=== PATIENT | male | born 1955 | race Caucasian/White ===

== ENCOUNTER 2016-09-25 14:44 | Emergency (ER) | payer MEDICARE ==
[2016-09-25 15:05] LABS: ADD ON TESTING BLD IN LAB ACKNOWLEDGE
[2016-09-25 15:06] LABS: ABSOLUTE BASOPHILS # (AUTO) 0.1 10^3/uL (0.0-0.2); ABSOLUTE LYMPHOCYTES (AUTO) 1.2 10^3/uL (0.5-4.7); ABSOLUTE MONOCYTES (AUTO) 0.5 10^3/uL (0.1-1.4); ABSOLUTE NEUT (AUTO) 14.2 10^3/uL (1.7-8.2); BASOPHILS % (AUTO) 0.7 % (0-2); EOSINOPHILS % (AUTO) 0.1 % (0-6); HEMATOCRIT 52.4 % (37.9-51.0); HEMOGLOBIN 17.6 g/dL (13.5-17.0); HGB HCT DIFFERENCE 0.4; LYMPHOCYTES % (AUTO) 7.7 % (13-45); MEAN CORPUSCULAR HEMOGLOBIN 31.4 pg (27.0-33.4); MEAN CORPUSCULAR HGB CONC 33.7 g/dL (32.0-36.0); MEAN CORPUSCULAR VOLUME 93 fl (80-97); MONOCYTES % (AUTO) 2.9 % (3-13); RED BLOOD COUNT 5.61 10^6/uL (4.35-5.55); SEGMENTED NEUTROPHILS % (AUTO) 88.6 % (42-78)
--- NOTE | 2016-09-25 15:15 | ER Document Report ---
ED Cardiac - General Mode of Arrival: Medic Information source: Patient - HPI Patient complains to provider of: Chest pain Associated symptoms: Other - see notes above <LAQUITA SCHWARZ - Last Filed: 09/25/16 16:00> <SIRENA BOSE - Last Filed: 09/25/16 18:58> - General Chief Complaint: Chest Pain Stated Complaint: CHEST PAIN Time Seen by Provider: 09/25/16 14:49 Notes: 61 year old male with history of hypertension, hyperlipidemia, CA (1999 with cardiac stent), and alcoholism presents to the ED via EMS complaining of left anterior wall chest pain that started at 0700 this morning and lasted for approximately 7 hours. Patient states that he woke up feeling nauseous and the chest pain set in 1 hour later. Patient additionally complains of cold sweats, vomiting, and left arm numbness. Patient states that he took an aspirin earlier this morning prior to EMS arriving. When EMS arrived the patient was given two nitro pills which provided him slight improvement. Patient reports that his current chest pain feels like past episodes of angina. Patient also claims that his symptoms have begun to resolve themselves within the past hour. Patient has not been taking any medications since stopping a few years ago. (LAQUITA SCHWARZ) - Related Data Allergies/Adverse Reactions: Penicillins Allergy (Verified 09/25/16 15:06) Past Medical History - General Information source: Patient - Social History Smoking Status: Current Every Day Smoker Frequency of alcohol use: Occasional Family History: CAD - Past Medical History Cardiac Medical History: Reports: Hx Heart Attack, Hx Hypercholesterolemia, Hx Hypertension GI Medical History: Reports: Hx Hiatal Hernia Psychiatric Medical History: Reports: Hx Depression Past Surgical History: Reports: Hx Cardiac Surgery - Immunizations Hx Diphtheria, Pertussis, Tetanus Vaccination: Yes <LAQUITA SCHWARZ - Last Filed: 09/25/16 16:00> Review of Systems - Review of Systems Constitutional: See HPI, Diaphoresis - cold sweats EENT: No symptoms reported Cardiovascular: See HPI, Chest pain - left Respiratory: No symptoms reported Gastrointestinal: See HPI, Vomiting. denies: Abdominal pain Genitourinary: No symptoms reported Male Genitourinary: No symptoms reported Musculoskeletal: No symptoms reported Skin: No symptoms reported Hematologic/Lymphatic: No symptoms reported Neurological/Psychological: See HPI, Numbness - left arm -: Yes All other systems reviewed and negative <LAQUITA SCHWARZ - Last Filed: 09/25/16 16:00> Physical Exam - General General appearance: Alert In distress: None - HEENT Head: Normocephalic, Atraumatic Eyes: Normal Extraocular movements intact: Yes Pupils: PERRL Neck: Normal. No: Carotid bruit - Respiratory Respiratory status: No respiratory distress Chest status: Nontender Breath sounds: Normal Chest palpation: Normal - Cardiovascular Rhythm: Regular Heart sounds: Normal auscultation - Abdominal Inspection: Normal Tenderness: Nontender - Back Back: Normal - Extremities General upper extremity: Normal inspection, Normal ROM General lower extremity: Normal inspection, Normal ROM - Neurological Neuro grossly intact: Yes - Psychological Associated symptoms: Normal affect, Normal mood - Skin Skin Temperature: Warm Skin Moisture: Dry Skin Color: Normal <YUMIKO SCHWARZUR - Last Filed: 09/25/16 16:00> Course - Laboratory Result Diagrams: 09/25/16 14:56 09/25/16 14:56 <LAQUITA SCHWARZ - Last Filed: 09/25/16 16:00> - Laboratory Result Diagrams: 09/25/16 14:56 09/25/16 14:56 <SIRENA BOSE - Last Filed: 09/25/16 18:58> - Re-evaluation Re-evalutation: 09/25/16 18:47 The patient is feeling better at this time. The first troponin was 0.099, repeat troponin 2 hours later was 0.091, after he had constant pain for about 7 hours. There are nonspecific inferior T-wave abnormalities, these were present almost 4 years ago, but slightly more pronounced today. The patient reports she has not taken medications in over 2 years because he is frustrated with having to wait and her doctor's office to be seen when he shows up on time for an appointment. He agrees this is a foolish behavior and is putting his health and life at risk. He is agreeable to starting back on his Lopressor which he was taking twice daily and Lipitor. He does not know the doses of either of these medications. He is agreeable to calling his previous primary care provider and reestablishing. He prefers not to stay in the hospital for tests, as he is feeling better and he did not have a rise in his troponin. (JUICE,SIRENA) - Vital Signs Vital signs: Temp Pulse Resp BP Pulse Ox 98.5 F 16 165/90 H 93 09/25/16 15:02 09/25/16 18:01 09/25/16 18:01 09/25/16 18:01 - Laboratory Laboratory results interpreted by me: 09/25/16 09/25/16 09/25/16 14:56 14:56 15:47 WBC 16.0 H RBC 5.61 H Hgb 17.6 H Hct 52.4 H Seg Neutrophils % 88.6 H Lymphocytes % 7.7 L Monocytes % 2.9 L Absolute Neutrophils 14.2 H Glucose 134 H Direct Bilirubin 0.5 H Creatine Kinase 40 L Urine Ketones 80 H Urine Urobilinogen 2.0 H Discharge <LAQUITA SCHWARZ - Last Filed: 09/25/16 16:00> <SIRENA BOSE - Last Filed: 09/25/16 18:58> - Discharge Clinical Impression: Chest pain Qualifiers: Chest pain type: unspecified Qualified Code(s): R07.9 - Chest pain, unspecified High blood pressure Qualifiers: Hypertension type: essential hypertension Qualified Code(s): I10 - Essential ( primary) hypertension Condition: Stable Disposition: HOME, SELF-CARE Additional Instructions: Chest Pain of Unclear Cause: The exact cause of your chest pain isn't clear. There is no evidence of heart attack on this visit. Further testing may be required to find the source of the pain. Your prior history of coronary artery disease makes angina a possibility. Most often, we find that this pain is coming from the chest wall -- the muscles or rib joints in the chest. But chest pain can come from the lung and lung lining, the esophagus, the heart valves or heart lining, and even the stomach or gallbladder. Rest. Eat lightly until the pain is gone. We may prescribe medicine for pain and inflammation. You should call the physician immediately if the pain radiates to the shoulder, jaw or arms; if you start to run a fever or develop a cough; or if you develop shortness of breath, or other new or alarming symptoms. //////////////////////////////////////////////////////////////////////////////// //////////////////////////////////////////////////////////////////////////////// //////////////// You were given a dose of Lopressor and Lipitor prior to discharge. You were given prescriptions for these 2 medications to start tomorrow morning. The dose you were on previously is unknown. You will also be given a prescription for nitroglycerin tablets to take if you have further chest discomfort. As you take Goody's on a daily basis, additional aspirin should not be necessary. Call your primary care provider to schedule an appointment in the next 1-2 weeks. Return to the emergency room immediately if you began having chest pain again. Prescriptions: Atorvastatin Calcium [Lipitor 40 mg Tablet] 40 mg PO QHS #30 tablet Metoprolol Tartrate [Lopressor 100 mg Tablet] 100 mg PO Q12 #60 tab Nitroglycerin 0.4 mg SL ASDIR PRN #25 tab.subl PRN Reason: Scribe Attestation: 09/25/16 18:58 I personally performed the services described in the documentation, reviewed and edited the documentation which was dictated to the scribe in my presence, and it accurately records my words and actions. (SIRENA BOSE) Scribe Documentation - Scribe Written by Senthil:: Senthil Rogers, 09/25/2016 1517 acting as scribe for :: Juice <LAQUITA SCHWARZ - Last Filed: 09/25/16 16:00>
[2016-09-25 15:23] LABS: ALANINE AMINOTRANSFERASE 28 U/L (21-72); ALBUMIN 4.2 g/dL (3.5-5.0); ALCOHOL < 10 mg/dL (NONE DETECTED); ALKALINE PHOSPHATASE 115 U/L (38-126); ANION GAP 12 (5-19); ASPARTATE AMINO TRANSFERASE 21 U/L (17-59); BILIRUBIN,DIRECT 0.5 mg/dL (0.0-0.4); BILIRUBIN,TOTAL 0.7 mg/dL (0.2-1.3); BLOOD UREA NITROGEN 8 mg/dL (7-20); CALCIUM 9.3 mg/dL (8.4-10.2); CARBON DIOXIDE 26 mmol/L (22-30); CHLORIDE 103 mmol/L (98-107); CREATINE KINASE 40 U/L (55-170); CREATININE RESULT 0.53 mg/dL (0.52-1.25); GLUCOSE 134 mg/dL (75-110); MAGNESIUM 1.9 mg/dL (1.6-2.3); POTASSIUM 3.7 mmol/L (3.6-5.0); SODIUM 140.9 mmol/L (137-145)
[2016-09-25 15:34] LABS: CREATINE KINASE MB 1.3 ng/mL (<4.55)
[2016-09-25 15:36] LABS: TROPONIN I 0.099 ng/mL
[2016-09-25] MEDS ORDERED: METOPROLOL TARTRATE PF/INJ 5 MG/5 ML SDV IV ONE (15:57)
[2016-09-25] MEDS ORDERED: NITROGLYCERIN 2% OINTMENT 1 GM PACKET TP ONE (15:58)
[2016-09-25 16:09] LABS: APPEARANCE,URINE CLEAR; BILIRUBIN,URINE NEGATIVE (NEGATIVE); GLUCOSE, URINE NEGATIVE (NEGATIVE); KETONES,URINE 80 mg/dL (NEGATIVE); LEUKOCYTE ESTERASE,URINE NEGATIVE (NEGATIVE); NITRITE,URINE NEGATIVE (NEGATIVE); PROTEIN,URINE NEGATIVE (NEGATIVE); URINE SPECIFIC GRAVITY 1.016
[2016-09-25 16:23] LABS: URINE BARBITURATES SCREEN NEGATIVE; URINE METHADONE SCREEN NEGATIVE; URINE OPIATES LOW NEGATIVE; URINE PHENCYCLIDINE SCREEN NEGATIVE
[2016-09-25] MEDS ORDERED: METOPROLOL TARTRATE 100 MG TABLET PO ONE (18:45)
[2016-09-25] MEDS ORDERED: ATORVASTATIN CALCIUM 40 MG TABLET PO ONE (18:46)
[2016-09-25 19:11] VITALS: BP 135/82
--- NOTE | 2016-09-25 23:36 | EKG REPORT ---
SEVERITY:- ABNORMAL ECG - SINUS RHYTHM PROBABLE LEFT ATRIAL ABNORMALITY NONSPECIFIC T ABNORMALITIES, INFERIOR LEADS : Confirmed by: Erlinda Wu 25-Sep-2016 23:35:25
== END 2016-09-25 19:11 | disposition home or self-care (01) ==
LOC: ER 14:44
DX: R07.89 Other chest pain (principal); I10 Essential (primary) hypertension; I25.2 Old myocardial infarction; R61 Generalized hyperhidrosis; R11.2 Nausea with vomiting, unspecified; R20.0 Anesthesia of skin; R94.31 Abnormal electrocardiogram [ECG] [EKG]; F17.200 Nicotine dependence, unspecified, uncomplicated; Z98.61 Coronary angioplasty status; Z88.0 Allergy status to penicillin; Z91.14 Patient's other noncompliance with medication regimen; E78.00 Pure hypercholesterolemia, unspecified
CPT/HCPCS: 93005; 99285; 96374; 36415; 82553; 80307 ×2; 82550; 83735; 85025; 80053; 81001; 84484; 71010; 93010; A9270 ×2; J3490